=== PATIENT | female | born 1960 | race Caucasian/White ===

== ENCOUNTER 2017-10-25 21:46 | Emergency (ER) | payer SELFPAY ==
[~2017-10-25] VITALS: Ht 162.6 cm; Wt 61.2 kg
[2017-10-25 21:46] VITALS: BP 126/67
[~2017-10-25 21:46] MED LIST: UNOBMED
[2017-10-25] MEDS ORDERED: Haloperidol 5mg/ml Inj IM ONE (22:15)
--- NOTE | 2017-10-25 22:49 | Emergency Room Report ---
History of Present Illness General Chief Complaint: Alcohol Intoxication Source: Patient Present Illness HPI 57year-old female brought in by EMS from [facility] [employer] for alleged alcohol intoxication Per bystanders patient had only 2 beers prior History of present illness limited due to Tongan language Patietn very agitated, trying to leave with unsteady gait Allergies: Coded Allergies: No Known Allergies (Unverified , 10/25/17) Patient History Past Medical History: unable to obtain Past Surgical History: unable to obtain Pertinent Family History: unable to obtain Social History: Reports: alcohol use Now: No Immunizations: UTD Reviewed Nursing Documentation: PMH: Agreed, PSxH: Agreed Nursing Documentation-PMH Past Medical History: No Stated History Review of Systems All Other Systems: negative except mentioned in HPI Physical Exam Vital Signs Date Time Temp Pulse Resp B/P (MAP) Pulse Ox O2 Delivery O2 Flow Rate FiO2 10/25/17 21:43 98.1 99 16 126/67 99 Room Air Sp02 EP Interpretation: reviewed, normal General Appearance: normal inspection, well appearing, no apparent distress, alert, GCS 15, non-toxic, other - +AOB Head: normocephalic, atraumatic Eyes: bilateral eye PERRL, bilateral eye EOMI ENT: normal ENT inspection, hearing grossly normal, normal pharynx, no angioedema, normal voice, TMs + canals normal, uvula midline, moist mucus membranes Neck: normal inspection, full range of motion, supple, thyroid normal, no meningismus, no bony tend Respiratory: normal inspection, lungs clear, normal breath sounds, no rhonchi, no respiratory distress, no retraction, no accessory muscle use, no wheezing, speaking full sentences Cardiovascular #1: regular rate, rhythm, no edema, no JVD, normal capillary refill Gastrointestinal: normal inspection, normal bowel sounds, non tender, soft, no mass, no peritonitis, non-distended, no guarding, no hernia, no pulsatile mass Genitourinary: no CVA tenderness Musculoskeletal: normal inspection, back normal, normal range of motion, no calf tenderness, pelvis stable, Cisco's Sign negative Neurologic: normal inspection, alert, responsive, slab grinder III-XII nml as tested, motor strength/tone normal, cerebellar normal, speech normal, abnormal gait Psychiatric: normal inspection, judgement/insight normal, mood/affect normal, no suicidal/homicidal ideation, no delusions Skin: normal inspection, normal color, no rash Lymphatic: normal inspection, no adenopathy Medical Decision Making Diagnostic Impression: Primary Impression: Acute alcoholic intoxication Qualified Codes: F10.929 - Alcohol use, unspecified with intoxication, unspecified ER Course Vital signs stable, afebrile She was given Haldol for sedation as his trying to leave with unsteady gait, acute alcohol intoxication and potentially pose danger to herself VSS, afebrile ETOH level 300 Slept throughout night Now alert and oriented, ambulating in ED with steady gait Feels better, wants to go home Counseled on heavy ETOH abuse ER course: Patient has remained stable during ED stay. Disposition: Patient is to be discharged to home. Patient is instructed to follow up with their primary care doctor within 5 days. Strict return precautions discussed with patient such as fever, chills, worsening/severe pain, nausea, vomiting, which may indicate severe illness. Patient verbalizes understanding and agrees with plan. Please note that this Emergency Department Report was dictated using [employer] design engineer technology software, occasionally this can lead to erroneous entry secondary to interpretation by the dictation equipment Last Vital Signs Date Time Temp Pulse Resp B/P (MAP) Pulse Ox O2 Delivery O2 Flow Rate FiO2 10/25/17 21:43 98.1 99 16 126/67 99 Room Air Status: improved Disposition: HOME, SELF-CARE GILBERT BUENO M.D. Oct 25, 2017 22:49
[2017-10-25 23:47] VITALS: BP 97/52
[2017-10-26 03:15] VITALS: BP 110/65
[2017-10-26 05:55] VITALS: BP 110/65
== END 2017-10-26 05:55 | disposition home or self-care (01) ==
LOC: EDBD 21:46 → EMR 22:00
DX: F10.129 Alcohol abuse with intoxication, unspecified (principal)
CPT/HCPCS: 36415; 96372; 99284; G0480; J1630; 80329; 99283